=== PATIENT | female | born 1975 | race African-American/Black ===

== ENCOUNTER 2018-05-13 18:16 | Emergency (ER) | payer BC, MEDICARE ==
[2018-05-13] MEDS: HYDROcodone/APAP 5/325MG 1 TAB TABLET PO (18:51)
[2018-05-13] MEDS: IBUPROFEN 800 MG TABLET. PO (18:52)
== END 2018-05-13 18:55 | disposition home or self-care (01) ==
LOC: ER 18:55
DX: G89.29 Other chronic pain (principal); M54.5 Low back pain; I10 Essential (primary) hypertension; Z90.711 Acquired absence of uterus with remaining cervical stump; Z98.890 Other specified postprocedural states
CPT/HCPCS: 99283

== ENCOUNTER 2018-05-20 15:47 | Emergency (ER) | payer BC ==
[2018-05-20] MEDS: IBUPROFEN 800 MG TABLET. PO (16:24)
[2018-05-20] MEDS: LOSARTAN POTASSIUM 50 MG TABLET. PO (16:24)
== END 2018-05-20 16:25 | disposition home or self-care (01) ==
LOC: ER 15:47
DX: S16.1XXA Strain of muscle, fascia and tendon at neck level, initial encounter (principal); G89.29 Other chronic pain; M54.5 Low back pain; I10 Essential (primary) hypertension; W01.0XXA Fall on same level from slipping, tripping and stumbling without subsequent striking against object, initial encounter; Y93.89 Activity, other specified; Y99.8 Other external cause status; Y92.89 Other specified places as the place of occurrence of the external cause
CPT/HCPCS: 99284

== ENCOUNTER 2019-05-10 09:14 | Emergency (ER) | payer BC ==
[~2019-05-10] VITALS: Ht 165.1 cm; Wt 145.1 kg
[~2019-05-10 09:14] MED LIST: ASPI325T8 PO; ATOR10TA60 PO; CLON1TAB11 PO; CYCL5TAB PO; ESOM40CA PO; FAMO20TA5 PO; FERR325T14 PO; FURO40TA4 PO; HYDR-2145 PO; HYDR-3164 PO; HYDR25TA PO; IBUP-1060 PO; LISI1TAB7 PO; LOSA-73 PO; METF500T16 PO; POTA20TA12 PO; POTA20TA4 PO; TIZA4TAB PO; VENL75TA PO
[2019-05-10 09:34] VITALS: BP 164/74
[2019-05-10] MEDS ORDERED: METH4TAB2 PO (09:44)
[2019-05-10] MEDS ORDERED: OXYC1TAB15 PO (09:44)
[2019-05-10] MEDS ORDERED: CYCL10TA2 PO (09:44)
[2019-05-10] MEDS ORDERED: CYCLOBENZAPRINE 10 MG TABLET. PO ONE (09:45)
[2019-05-10] MEDS ORDERED: oxyCODONE/APAP 5/325 1 TAB TABLET PO ONE (09:45)
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
== END 2019-05-10 10:28 | disposition home or self-care (01) ==
LOC: ER 09:14
DX: G89.29 Other chronic pain (principal); M54.5 Low back pain; E66.01 Morbid (severe) obesity due to excess calories; Z68.43 Body mass index [BMI] 50.0-59.9, adult; Z76.0 Encounter for issue of repeat prescription; I10 Essential (primary) hypertension; Z90.711 Acquired absence of uterus with remaining cervical stump
CPT/HCPCS: 99283

== ENCOUNTER 2019-06-01 12:19 | Emergency (ER) | payer BC ==
[~2019-06-01] VITALS: Ht 165.1 cm; Wt 145.1 kg
[~2019-06-01 12:19] MED LIST changes: +CYCL10TA2 PO; +METH4TAB2 PO; +OXYC1TAB15 PO
[2019-06-01 12:30] VITALS: BP 140/71
[2019-06-01] MEDS ORDERED: KETOROLAC 60 MG/2 ML VIAL. IM ONE (13:00)
[2019-06-01] MEDS ORDERED: ORPHENADRINE CITRATE 60 MG/2 ML VIAL. IM ONE (13:00)
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
== END 2019-06-01 13:00 | disposition home or self-care (01) ==
LOC: ER 12:19
DX: M89.29 Other disorders of bone development and growth, multiple sites (principal); M54.6 Pain in thoracic spine; M54.5 Low back pain
CPT/HCPCS: 96372; 99285; J1885; J2360

== ENCOUNTER → 2019-07-15 | Outpatient (CLI) | payer BC, MEDICAID ==
[~2019-07-15] MED LIST changes: -TIZA4TAB PO; +TIZA4TAB2 PO
--- NOTE | 2019-07-15 12:54 | RAD ---
EXAM: Bilateral knees, 4 views. HISTORY: Pain. COMPARISON: None. FINDINGS: A frontal standing view both knees and frontal, lateral and oblique views of both knees are obtained. There is mild bilateral patellofemoral compartment predominant tricompartmental osteoarthritis of both knees. There are small bilateral knee effusions. IMPRESSION: 1. Mild patellofemoral compartment predominant tricompartmental osteoarthritis of both knees. 2. Small bilateral knee effusions. Electronically signed by: Lynda Bergeron MD (07/15/2019 12:51 PM) [facility]
--- NOTE | 2019-07-15 12:55 | RAD ---
EXAM: Bilateral knees, 4 views. HISTORY: Pain. COMPARISON: None. FINDINGS: A frontal standing view both knees and frontal, lateral and oblique views of both knees are obtained. There is mild bilateral patellofemoral compartment predominant tricompartmental osteoarthritis of both knees. There are small bilateral knee effusions. IMPRESSION: 1. Mild patellofemoral compartment predominant tricompartmental osteoarthritis of both knees. 2. Small bilateral knee effusions. Electronically signed by: Lynda Bergeron MD (07/15/2019 12:51 PM) [facility]
== END | disposition home or self-care (01) ==
LOC: RAD 11:24
PROVIDERS: ATTEND Surgery
DX: M17.0 Bilateral primary osteoarthritis of knee (principal); M25.462 Effusion, left knee; M25.461 Effusion, right knee
CPT/HCPCS: 73562; 73565

== ENCOUNTER → 2019-07-16 | Outpatient (CLI) | payer BC, MEDICAID ==
[~2019-07-16] MED LIST changes: -CLON1TAB11 PO; +CLONAZEPAM1 MG PO; +LISI1TAB20 PO; -LISI1TAB7 PO
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
== END | disposition home or self-care (01) ==
LOC: RAD 10:25
PROVIDERS: ATTEND Surgery
DX: M51.35 Other intervertebral disc degeneration, thoracolumbar region (principal); S21.209A Unspecified open wound of unspecified back wall of thorax without penetration into thoracic cavity, initial encounter; X58.XXXA Exposure to other specified factors, initial encounter; Y93.89 Activity, other specified; Y92.89 Other specified places as the place of occurrence of the external cause; Y99.8 Other external cause status
CPT/HCPCS: 72072; 72100

== ENCOUNTER 2019-12-09 11:03 | Emergency (ER) | payer BC, MEDICAID | END 2019-12-09 12:07 | disposition left against medical advice (07) | LOC: ER 11:03 | DX: M54.9 Dorsalgia, unspecified (principal); Z53.21 Procedure and treatment not carried out due to patient leaving prior to being seen by health care provider ==

== ENCOUNTER 2019-12-18 13:43 | Emergency (ER) | payer BC ==
[~2019-12-18] VITALS: Ht 165.1 cm; Wt 159.0 kg
[2019-12-18 14:10] VITALS: BP 140/71
[2019-12-18] MEDS ORDERED: predniSONE 20 MG TABLET PO ONE (14:45)
[2019-12-18] MEDS ORDERED: KETOROLAC 60 MG/2 ML VIAL. IM ONE (14:45)
[2019-12-18] MEDS ORDERED: MORPHINE SULFATE 10 MG/ML VIAL. IM ONE (14:45)
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
== END 2019-12-18 15:10 | disposition home or self-care (01) ==
LOC: ER 13:43
DX: G89.29 Other chronic pain (principal); M54.5 Low back pain; M79.602 Pain in left arm; I10 Essential (primary) hypertension; Z90.711 Acquired absence of uterus with remaining cervical stump
CPT/HCPCS: 96372; 99284; J1885; J2270; J7512

== ENCOUNTER 2020-02-01 12:19 | Emergency (ER) | payer SELFPAY ==
[~2020-02-01] VITALS: Ht 170.2 cm; Wt 154.1 kg
[2020-02-01 13:00] VITALS: BP 169/95
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
[2020-02-01] MEDS ORDERED: HYDR-3164 PO (14:11)
[2020-02-01] MEDS ORDERED: ORPH100T PO (14:11)
== END 2020-02-01 14:20 | disposition home or self-care (01) ==
LOC: ER 12:19
DX: G89.11 Acute pain due to trauma (principal); M79.604 Pain in right leg; M79.605 Pain in left leg; M79.601 Pain in right arm; M79.602 Pain in left arm; M54.9 Dorsalgia, unspecified; I10 Essential (primary) hypertension; Z90.710 Acquired absence of both cervix and uterus; Z98.890 Other specified postprocedural states; V89.2XXA Person injured in unspecified motor-vehicle accident, traffic, initial encounter; Y93.89 Activity, other specified; Y92.89 Other specified places as the place of occurrence of the external cause; Y99.8 Other external cause status
CPT/HCPCS: 72050; 72072; 72100; 99284

== ENCOUNTER 2020-05-25 09:51 | Emergency (ER) | payer BC, OTHER ==
[~2020-05-25] VITALS: Ht 165.1 cm; Wt 136.0 kg
[~2020-05-25 09:51] MED LIST changes: +ORPH100T PO
[2020-05-25 10:05] VITALS: BP 157/74
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
--- NOTE | 2020-05-25 11:26 | RAD ---
SHOULDER 2+V RIGHT 05/25/2020 10:31 AM INDICATION: Pain COMPARISON: None available. TECHNIQUE: 3 views of the right shoulder are provided. FINDINGS/ IMPRESSION: There is no acute fracture or dislocation. Joint spaces are maintained. Bone mineralization is within normal limits. Regional soft tissues are within normal limits. There is no soft tissue gas or osseous erosion. No radiopaque foreign body. Electronically signed by: Micheline Rasmussen MD (05/25/2020 11:23 AM) [id number]
[2020-05-25] MEDS ORDERED: IBUP-1007 PO (11:39)
== END 2020-05-25 11:44 | disposition home or self-care (01) ==
LOC: ER 09:51
DX: M25.511 Pain in right shoulder (principal); I10 Essential (primary) hypertension; G89.29 Other chronic pain; Z90.710 Acquired absence of both cervix and uterus; Z98.890 Other specified postprocedural states
CPT/HCPCS: 73030; 99283; A4565

== ENCOUNTER 2020-09-16 00:31 | Emergency (ER) | payer BC, MEDICAID ==
[~2020-09-16] VITALS: Ht 165.1 cm; Wt 145.0 kg
[~2020-09-16 00:31] MED LIST changes: +IBUP-1007 PO
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
[2020-09-16] MEDS ORDERED: IV NORMAL SALINE 1000ML BAG 1,000 ML IV ONE (01:00)
[2020-09-16] MEDS ORDERED: FAMOTIDINE 20 MG/2 ML VIAL IVP ONE (01:00)
[2020-09-16] MEDS ORDERED: ASPIRIN 325 MG TABLET PO ONE (01:00)
[2020-09-16 01:10] LABS: BASO # 0.1 x10^3/uL (0.0-0.2); BASO % 1 % (0-3); EOS # 0.1 x10^3/uL (0.0-0.7); EOS % 1 % (0-3); HEMATOCRIT 37.5 % (36.0-47.0); HEMOGLOBIN 12.7 g/dL (12.0-15.5); LYMPH # 3.5 x10^3/uL (1.0-4.8); LYMPH % 31 % (24-48); MEAN CORPUSCULAR HEMOGLOBIN 30 pg (25-35); MEAN CORPUSCULAR HGB CONC 34 g/dL (31-37); MEAN CORPUSCULAR VOLUME 88 fL (79-100); MONO # 0.7 x10^3/uL (0.0-1.1); MONO % 7 % (0-9); NEUT # 6.7 x10^3/uL (1.8-7.7); NEUT % 61 % (31-73); PLATELET COUNT 428 x10^3/uL (140-400); RED BLOOD COUNT 4.25 x10^6/uL (3.50-5.40); RED CELL DISTRIBUTION WIDTH 13.4 % (11.5-14.5); WHITE BLOOD COUNT 11.1 x10^3/uL (4.0-11.0)
[2020-09-16 01:17] LABS: CALCIUM 9.4 mg/dL (8.5-10.1); CREATININE 1.1 mg/dL (0.6-1.0); GFR 64.7; POTASSIUM 3.3 mmol/L (3.5-5.1)
[2020-09-16 01:19] LABS: PROTHROMBIN TIME PATIENT 13.2 SEC (11.7-14.0)
[2020-09-16 01:24] LABS: ALBUMIN 3.3 g/dL (3.4-5.0); ALBUMIN/GLOBULIN RATIO 0.7 (1.0-1.7); MAGNESIUM 1.9 mg/dL (1.8-2.4); TOTAL BILIRUBIN 0.3 mg/dL (0.2-1.0); TOTAL PROTEIN 8.3 g/dL (6.4-8.2)
[2020-09-16] MEDS ORDERED: POTASSIUM CHLORIDE 20 MEQ TABLET.ER. PO ONE (01:45)
--- NOTE | 2020-09-16 02:16 | RAD ---
PA and lateral chest. HISTORY: Chest pain PA and lateral views were taken of the chest. Lungs are clear. Heart is normal in size. There is no pleural effusion. IMPRESSION: 1. No acute chest disease. Electronically signed by: Aneesh Keenan MD (09/16/2020 2:13 AM) [id number]
[2020-09-16] MEDS ORDERED: ORPHENADRINE CITRATE 60 MG/2 ML VIAL. IV ONE (02:30)
[2020-09-16 02:35] VITALS: BP 152/63
--- NOTE | 2020-09-16 08:38 | EKG ---
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
== END 2020-09-16 02:40 | disposition home or self-care (01) ==
LOC: ER 00:31
DX: R07.89 Other chest pain (principal); G89.29 Other chronic pain; M54.5 Low back pain; K21.9 Gastro-esophageal reflux disease without esophagitis; I10 Essential (primary) hypertension; Z90.710 Acquired absence of both cervix and uterus
CPT/HCPCS: 36415; 71046; 80053; 83690; 83735; 83880; 84484; 85025; 85379; 85610; 85730; 93005; 96361; 96374; 96375; 99285; J2360; J3490; J7030

== ENCOUNTER 2020-12-01 09:21 | Emergency (ER) | payer BC ==
[~2020-12-01] VITALS: Ht 162.6 cm; Wt 154.3 kg
[2020-12-01 12:10] VITALS: BP 130/80
[2020-12-01] MEDS ORDERED: ORPHENADRINE CITRATE 60 MG/2 ML VIAL. IM ONE (12:45)
[2020-12-01] MEDS ORDERED: KETOROLAC 30 MG/ML VIAL. IM ONE (12:45)
--- NOTE | 2020-12-01 13:22 | RAD ---
EXAM: Left knee, 3 views. HISTORY: Pain. Fall. COMPARISON: None. FINDINGS: 3 views of the left knee are obtained. There is mild medial patellofemoral compartment join t space narrowing and trochlea bilateral spurring. There is no joint effusion. There is no fracture, dislocation or subluxation. IMPRESSION: Mild medial and patellofemoral compartment predominant osteoarthritis of the left knee. Electronically signed by: Lynda Bergeron MD (12/01/2020 1:20 PM) [id number]
--- NOTE | 2020-12-01 13:23 | RAD ---
EXAM: Left hand, 3 views. HISTORY: Pain. Fall. COMPARISON: None. FINDINGS: 3 views of the left hand are obtained. There is no acute fracture, dislocation or subluxati on. There are 3 mm in one MM radiodense foreign bodies within the dorsal hand soft tissues at the lev el of the fourth metacarpal phalangeal joint. IMPRESSION: 1. No acute osseous finding. 2. Tiny radiodense foreign bodies overlying the soft tissues of the dorsal aspect of the fourth metac arpal phalangeal joint. Electronically signed by: Lynda Bergeron MD (12/01/2020 1:21 PM) [id number]
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
== END 2020-12-01 14:00 | disposition home or self-care (01) ==
LOC: ER 09:21
DX: M25.562 Pain in left knee (principal); M79.642 Pain in left hand; M79.641 Pain in right hand; G89.11 Acute pain due to trauma; K21.9 Gastro-esophageal reflux disease without esophagitis; I10 Essential (primary) hypertension; W00.2XXA Other fall from one level to another due to ice and snow, initial encounter; Y93.89 Activity, other specified; Y92.481 Parking lot as the place of occurrence of the external cause; Y99.8 Other external cause status
CPT/HCPCS: 73130; 73562; 96372; 99284; J1885; J2360

== ENCOUNTER 2020-12-29 23:01 | Emergency (ER) | payer BC ==
[~2020-12-29] VITALS: Ht 165.1 cm; Wt 153.5 kg
[2020-12-30] MEDS ORDERED: MORPHINE SULFATE 10 MG/ML VIAL. IM ONE
[2020-12-30] MEDS ORDERED: ORPHENADRINE CITRATE 60 MG/2 ML VIAL. IM ONE
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
[2020-12-30 00:20] VITALS: BP 135/81
== END 2020-12-30 00:20 | disposition home or self-care (01) ==
LOC: ER 23:01
DX: M54.5 Low back pain (principal); M25.562 Pain in left knee; R20.2 Paresthesia of skin; K21.9 Gastro-esophageal reflux disease without esophagitis; G89.29 Other chronic pain; I10 Essential (primary) hypertension; Z98.890 Other specified postprocedural states; Z90.710 Acquired absence of both cervix and uterus
CPT/HCPCS: 96372; 99284; J2270; J2360

== ENCOUNTER 2021-08-18 20:30 | Emergency (ER) | payer BC ==
[~2021-08-18] VITALS: Ht 165.1 cm; Wt 145.0 kg
[~2021-08-18 20:30] MED LIST changes: +POTA-121 PO; -POTA20TA4 PO
[2021-08-18 23:38] LABS: BASO # 0.1 x10^3/uL (0.0-0.2); BASO % 1 % (0-3); EOS # 0.1 x10^3/uL (0.0-0.7); EOS % 1 % (0-3); HEMATOCRIT 36.8 % (36.0-47.0); HEMOGLOBIN 12.7 g/dL (12.0-15.5); LYMPH # 2.4 x10^3/uL (1.0-4.8); LYMPH % 23 % (24-48); MEAN CORPUSCULAR HEMOGLOBIN 31 pg (25-35); MEAN CORPUSCULAR HGB CONC 35 g/dL (31-37); MEAN CORPUSCULAR VOLUME 90 fL (79-100); MONO # 0.6 x10^3/uL (0.0-1.1); MONO % 6 % (0-9); NEUT # 7.2 x10^3/uL (1.8-7.7); NEUT % 69 % (31-73); PLATELET COUNT 410 x10^3/uL (140-400); RED BLOOD COUNT 4.11 x10^6/uL (3.50-5.40); RED CELL DISTRIBUTION WIDTH 14.6 % (11.5-14.5); WHITE BLOOD COUNT 10.5 x10^3/uL (4.0-11.0)
[2021-08-18] MEDS ORDERED: FAMOTIDINE 20 MG TABLET. PO ONE (23:45)
[2021-08-18] MEDS ORDERED: MORPHINE SULFATE 2 MG/ML INJ. IVP ONE (23:45)
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
[2021-08-18 23:53] LABS: CALCIUM 9.4 mg/dL (8.5-10.1); CREATININE 1.1 mg/dL (0.6-1.0); GFR 64.4; POTASSIUM 3.5 mmol/L (3.5-5.1)
[2021-08-18 23:58] LABS: ALBUMIN 3.2 g/dL (3.4-5.0); ALBUMIN/GLOBULIN RATIO 0.7 (1.0-1.7); TOTAL BILIRUBIN 0.3 mg/dL (0.2-1.0)
[2021-08-19 00:30] VITALS: BP 140/81
[2021-08-19] MEDS ORDERED: FAMO40TA57 PO (00:35)
[2021-08-19] MEDS ORDERED: OXYC1TAB15 PO (00:35)
--- NOTE | 2021-08-19 00:38 | RAD ---
EXAM: CHEST ONE VIEW. HISTORY: Chest pain. COMPARISON: 09/16/2020. FINDINGS: A frontal view of the chest is obtained. There is a mild airspace opacity in the right cardiophrenic angle. There is no pneumothorax or pleura l effusion. The heart is not enlarged. IMPRESSION: 1. Correlate for mild right basilar pneumonia. Electronically signed by: Beth Ford MD (08/19/2021 12:36 AM) [facility]
== END 2021-08-19 00:50 | disposition home or self-care (01) ==
LOC: ER 20:30
DX: R07.89 Other chest pain (principal); K21.9 Gastro-esophageal reflux disease without esophagitis; I10 Essential (primary) hypertension; G89.29 Other chronic pain
CPT/HCPCS: 36415; 71045; 80053; 84484; 85025; 96374; 99285; J2270

== ENCOUNTER 2021-09-05 10:00 | Emergency (ER) | payer BC ==
[~2021-09-05] VITALS: Ht 165.1 cm; Wt 140.0 kg
[~2021-09-05 10:00] MED LIST changes: +FAMO40TA57 PO
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
[2021-09-05 10:28] LABS: BILIRUBIN,URINE NEGATIVE (NEG); CLARITY,URINE CLOUDY; COLOR,URINE YELLOW; NITRITE,URINE NEGATIVE (NEG); PROTEIN,URINE NEGATIVE (NEG-TRACE)
--- NOTE | 2021-09-05 10:29 | RAD ---
EXAM: Chest, single view. HISTORY: Weakness. Fever. COMPARISON: 08/18/2021 FINDINGS: A frontal view of the chest is obtained. There is stable mild elevation of the right hemidi aphragm. There is a stable cardiac silhouette. No pleural effusion or pneumothorax is seen. IMPRESSION: No acute pulmonary finding. Electronically signed by: Lynda Bergeron MD (09/05/2021 10:27 AM) [id number]
[2021-09-05] MEDS: IV NORMAL SALINE 1000ML BAG 1,000 ML IV ONE ×2 (10:38→12:23)
[2021-09-05 10:43] LABS: BACTERIA,URINE MODERATE /HPF (0-FEW); RBC,URINE OCC /HPF (0-2)
[2021-09-05] MEDS: ACETAMINOPHEN 500 MG TABLET PO ONE (11:02)
[2021-09-05 11:03] LABS: CALCIUM 8.8 mg/dL (8.5-10.1); CREATININE 1.1 mg/dL (0.6-1.0); GFR 64.4
[2021-09-05] MEDS: DEXAMETHASONE SOD PHOS 20 MG/5 ML VIAL. IV ONE (11:03)
[2021-09-05 11:05] LABS: BASO # 0.1 x10^3/uL (0.0-0.2); BASO % 1 % (0-3); EOS % 0 % (0-3); HEMOGLOBIN 12.9 g/dL (12.0-15.5); LYMPH # 1.1 x10^3/uL (1.0-4.8); LYMPH % 11 % (24-48); MEAN CORPUSCULAR HEMOGLOBIN 30 pg (25-35); MEAN CORPUSCULAR HGB CONC 33 g/dL (31-37); MEAN CORPUSCULAR VOLUME 90 fL (79-100); MONO # 0.5 x10^3/uL (0.0-1.1); MONO % 5 % (0-9); NEUT % 83 % (31-73); PLATELET COUNT 426 x10^3/uL (140-400); RED BLOOD COUNT 4.33 x10^6/uL (3.50-5.40); RED CELL DISTRIBUTION WIDTH 14.2 % (11.5-14.5); WHITE BLOOD COUNT 9.7 x10^3/uL (4.0-11.0)
[2021-09-05 11:08] LABS: ALBUMIN 3.1 g/dL (3.4-5.0); ALBUMIN/GLOBULIN RATIO 0.6 (1.0-1.7); TOTAL BILIRUBIN 0.3 mg/dL (0.2-1.0); TOTAL PROTEIN 8.4 g/dL (6.4-8.2)
[2021-09-05] MEDS: cefTRIAXone IV Push 1 GM VIAL. IVP ONE (11:08)
[2021-09-05 11:10] LABS: POTASSIUM 3.7 mmol/L (3.5-5.1)
[2021-09-05 11:18] LABS: INFLUENZA A PATIENT NEGATIVE (NEGATIVE)
[2021-09-05 11:32] LABS: INFLUENZA B PATIENT POSITIVE (NEGATIVE)
[2021-09-05] MEDS ORDERED: CEPH500C PO (11:43)
[2021-09-05] MEDS ORDERED: ONDA4TAB12 PO (11:43)
[2021-09-05] MEDS ORDERED: ALBU2.5V8 INH (11:43)
[2021-09-05] MEDS ORDERED: METH4TAB2 PO (11:43)
[2021-09-05] MEDS: KETOROLAC 30 MG/ML VIAL. IVP ONE (11:45)
[2021-09-05 11:48] VITALS: BP 148/68
--- NOTE | 2021-09-05 13:10 | EKG ---
[facility] [address] [place] [address] Test Date: 2021-09-05 Test Time: 10:22:08 Pat Name: AYSE LUO Department: Room: Gender: F Ammonia Still Operator: : 1975 Requested By: FARTUN JC Order Number: [id number] Reading MD: Zachary Sinha Measurements Intervals [place] Rate: 102 P: 60 DC: 138 QRS: 34 QRSD: 78 T: 10 QT: 324 QTc: 426 Interpretive Statements SINUS TACHYCARDIA Electronically Signed On 09-05-2021 16:35:27 CDT by Zachary Sinha
== END 2021-09-05 14:04 | disposition home or self-care (01) ==
LOC: ER 10:00
DX: U07.1 COVID-19 (principal); J10.1 Influenza due to other identified influenza virus with other respiratory manifestations; N39.0 Urinary tract infection, site not specified; R31.9 Hematuria, unspecified; K21.9 Gastro-esophageal reflux disease without esophagitis; I10 Essential (primary) hypertension; Z98.890 Other specified postprocedural states; Z90.710 Acquired absence of both cervix and uterus
CPT/HCPCS: 36415; 71045; 80053; 81001; 81025; 83735; 83880; 84484; 85025; 87077; 87086; 87186; 87426; 87491; 87591; 87804; 93005; 96361; 96374; 96375; 99285; J0696; J1100; J1885; J7030

== ENCOUNTER → 2021-12-21 | Emergency (ER) | payer BC ==
[~2021-12-21] MED LIST changes: +ALBU2.5V8 INH; +CEPH500C PO; +CYCL10TA19 PO; -CYCL10TA2 PO; -LISI1TAB20 PO; +LISI1TAB39 PO; +ONDA4TAB12 PO; +TIZA-75 PO; -TIZA4TAB2 PO
== END | disposition left against medical advice (07) ==
LOC: ER 22:15
DX: M54.9 Dorsalgia, unspecified (principal); Z53.21 Procedure and treatment not carried out due to patient leaving prior to being seen by health care provider
CPT/HCPCS: 81025

== ENCOUNTER 2022-03-08 12:36 | Emergency (ER) | payer BC, MEDICAID ==
[~2022-03-08] VITALS: Ht 165.1 cm; Wt 152.2 kg
[2022-03-08 12:37] VITALS: BP 148/68
[2022-03-08] MEDS ORDERED: KETOROLAC 60 MG/2 ML VIAL. IM ONE (13:30)
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
[2022-03-08] MEDS ORDERED: METH4TAB2 PO (14:36)
[2022-03-08] MEDS ORDERED: CYCL7.5T PO (14:37)
--- NOTE | 2022-03-10 10:14 | EKG ---
[facility] [address] [place] [address] Test Date: 2022-03-08 Test Time: 12:48:44 Pat Name: AYSE GALLARDO Department: Room: Gender: F [place] [employer]: : 1975 Requested By: RANDY TUBBS Order Number: [id number] Reading MD: Zachary Sinha Measurements Intervals [place] Rate: 109 P: 71 [place]: 138 QRS: 29 QRSD: 90 T: 29 QT: 332 QTc: 449 Interpretive Statements SINUS TACHYCARDIA Electronically Signed On 03-11-2022 13:42:04 CDT by Zachary Sinha
== END 2022-03-08 15:50 | disposition home or self-care (01) ==
LOC: ER 12:36
DX: M54.50 Low back pain, unspecified (principal); M51.37 Other intervertebral disc degeneration, lumbosacral region; I10 Essential (primary) hypertension; K21.9 Gastro-esophageal reflux disease without esophagitis; G89.29 Other chronic pain; Z90.710 Acquired absence of both cervix and uterus
CPT/HCPCS: 72100; 93005; 96372; 99284; J1885; J2060

== ENCOUNTER 2022-03-23 09:23 | Emergency (ER) | payer SELFPAY ==
[~2022-03-23] VITALS: Ht 165.1 cm; Wt 153.6 kg
[2022-03-23 09:23] VITALS: BP 148/99
[~2022-03-23 09:23] MED LIST changes: +CYCL7.5T PO
[2022-03-23] MEDS ORDERED: KETOROLAC 60 MG/2 ML VIAL. IM ONE (10:30)
[2022-03-23] MEDS ORDERED: ORPHENADRINE CITRATE 60 MG/2 ML VIAL. IM ONE (10:30)
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
[2022-03-23] MEDS ORDERED: CYCL10TA19 PO (12:24)
== END 2022-03-23 12:47 | disposition home or self-care (01) ==
LOC: ER 09:23
DX: M54.41 Lumbago with sciatica, right side (principal); G89.29 Other chronic pain; K21.9 Gastro-esophageal reflux disease without esophagitis; I10 Essential (primary) hypertension; Z90.710 Acquired absence of both cervix and uterus
CPT/HCPCS: 72131; 96372; 99284; J1885; J2360